=== PATIENT | male | born 1950 | race Caucasian/White ===

== ENCOUNTER 2017-03-04 21:13 | Emergency (ER) | payer SELFPAY ==
[~2017-03-04] VITALS: Ht 185.4 cm; Wt 105.0 kg
[2017-03-04] MEDS ORDERED: ACYC800T PO (21:19)
[2017-03-04] MEDS ORDERED: GABA-529 PO (21:19)
[2017-03-04] MEDS ORDERED: TRAM50TA4 PO (21:19)
[2017-03-04 21:50] VITALS: BP 142/80
[2017-03-04] MEDS ORDERED: HYDROCODONE/ACETAMINOPHEN 5-325 MG TABLET PO ONE (22:15)
== END 2017-03-04 22:44 | disposition home or self-care (01) ==
LOC: EMS 21:16
DX: B02.9 Zoster without complications (principal); M54.9 Dorsalgia, unspecified
CPT/HCPCS: 99283

== ENCOUNTER 2017-03-15 07:08 | Emergency (ER) | payer SELFPAY ==
[~2017-03-15] VITALS: Ht 185.4 cm; Wt 102.3 kg
[~2017-03-15 07:08] MED LIST: ACYC800T PO; GABA-529 PO; TRAM50TA4 PO
[2017-03-15 08:31] VITALS: BP 144/80
== END 2017-03-15 08:33 | disposition home or self-care (01) ==
LOC: EMS 07:09
DX: B02.29 Other postherpetic nervous system involvement (principal); Z77.22 Contact with and (suspected) exposure to environmental tobacco smoke (acute) (chronic)
CPT/HCPCS: 99283